=== PATIENT | female | born 1985 | race Caucasian/White ===

== ENCOUNTER → 2017-03-17 | Day surgery (SDC) | payer OTHER ==
[~2017-03-17] VITALS: Ht 154.9 cm; Wt 96.7 kg
[2017-03-17] VITALS (10 sets, daily range): BP systolic 95–144; BP diastolic 58–85; PULSE 59–86; RESP 14–18; O2SAT 93–100
[~2017-03-17] MED LIST: Bupivacaine-MPF 0.5% 30 mL Inj INFILTRATE ONE; Dexamethasone 10 mg/50 mL NS IV ONE; Dexamethasone 4 mg/mL Inj IVPUSH PRN; Dexamethasone 4 mg/mL Inj ONE; EPHEDrine Sulfate 50 mg/mL Inj IVPUSH PRN; Glycopyrrolate 0.2 MG/ML 1mL Inj ONE; HYDROmorphone 1 mg/mL Inj IVPUSH PRN; HYDROmorphone 1 mg/mL Inj ONE; Lactated Ringer's 1,000 ML IV ONE; Lactated Ringer's 1,000 ML IV SCH; Lactated Ringer's 500 ML IV PRN; MetoCLOpramide 5 mg/mL 2 mL Inj IVPUSH PRN; Neostigmine 1 mg/mL 10 mL Inj ONE; Ondansetron 2 mg/mL 2 mL Inj IVPUSH PRN; Ondansetron 2 mg/mL 2 mL Inj ONE; Phenylephrine 10,000 mCg/mL Inj IVPUSH PRN; Propofol 10,000 mCg/mL 20 mL Inj ONE; Rocuronium 10 mg/mL 5 mL Inj ONE; fentaNYL-PF 50 mCg/mL 2 mL Inj IVPUSH PRN; fentaNYL-PF 50 mCg/mL 2 mL Inj ONE
[2017-03-17] MEDS: Lactated Ringer's 1,000 ML IV SCH ×2 (06:46→08:51)
--- NOTE | 2017-03-17 10:35 | PCM.HPANE ---
Patient Data Surgeon Admitting Provider: Attending Provider:Rico Rodriguez MD Primary Care Physician:Funmilayo Vivar Other Provider:Shyam Ramirez Anesthesia Reason for Visit Tonsillitis Ht/WT & BMI Height (Feet): 5 Height (Inches): 1.00 Weight (Kilograms): 96.7 Body Mass Index 40.00 Allergies Coded Allergies: azithromycin (Unverified Allergy, Severe, rash, 02/16/15) ibuprofen (Unverified Allergy, Severe, HIVES, 02/16/15) hydrocodone (Unverified Adverse Reaction, Severe, N7v, 02/16/15) Past Anesthesia History Anesthesia History: Positive for:: Abnormal Airway (tonsillar hypertrophy current admission problem), Denies:: Anesthesia Reactions, Fam Anesthesia Reaction, Malignant Hyperthermia Diabetes History Hx Diabetes?: No MRSA MRSA: No Medications Hypertension Medication: No Home Meds Incl Beta Nancy: No Discontinued Reported Medications Prednisone (PredniSONE)20 Mg [id number] Mg PO DAILY Ref 0 02/16/15 Hydrocodone-Acetaminophen 5-325 mg 1 Each Tablet1 Each PO Q6 PRN For Pain Ref 0 02/16/15 Escitalopram Oxalate 5 Mg/5 Ml [id number] Mg PO DAILY #1 BOTTLE Ref 0 02/16/15 Citalopram 10 Mg [id number] Mg PO DAILY 30 Days Ref 0 02/16/15 Cephalexin 500 Mg [id number] Mg PO BID #40 CAPSULE Ref 0 02/16/15 Buspirone 15 Mg [id number] Mg PO QID 30 Days Ref 0 02/16/15 History History of ENT Problems?: Yes HEENT History: Positive for:: Abnormal Airway (tonsillar hypertrophy current admission problem) Sinus Problem (RHINITIS) Denies:: Cataracts Glaucoma Hearing Problem Denture Type: None Teeth Condition: Within Normal Limits Hx of Heart Problems?: Yes Cardiovascular History: Positive for:: Thrombophlebitis (hx of blood clots, IVC filter placed and removed 2011) Denies:: Abdominal Aortic Aneurism Cardiac Surgery Edema Heart Murmur Hypertension Irregular Heartbeat Hx of Respiratory Problem?: No Respiratory History: Positive for:: Dyspnea ("PROBLEMS BREATHING" R/T PERITONSILLAR ABCESS) Denies:: Asthma COPD Emphysema Pneumonia Tuberculosis Use of C-PAP Machine Use of Inhalers / NEBS Hx Neurologic Problems?: No Neurological History: Denies:: CVA Dizziness Headaches Multiple Sclerosis Parkinson's Disease Seizures Hx of GI Problems?: Yes Hx of Problems?: No Genitourinary History: Denies:: Kidney Stones Urinary Tract Infection Female Hx: Denies:: Currently Problems with Breasts? Skin History: Denies:: History Skin Disorders? Pressure Ulcers Hx Musculoskeletal Problems?: No Musculoskeletal History: Denies:: Back Injury Degenerative Joint Fibromyalgia Musculoskeletal Trauma Myasthenia Gravis Osteoarthritis Systemic Lupus Hx of Psycho/Social Problems?: Yes Psycho Social History: Positive for:: Anxiety Hx Depression Hx Surgeries?: Yes (BTL, IVC filter) Hx Any Other Health Problems?: Yes Other History: Denies:: Cancer Endocrine Disease Hospitalization Thyroid Disease History Blood Transfusions: Positive for:: Accept Blood Products? Denies:: Blood Transfusions Hx Diabetes: No Hx Alcohol Use: YesAlcoholic Drinks Per Day: 2 drinks monthlyHx Substance Use : No Smoking Status: Current Every Day Smoker Have You Smoked inLast 12 mo: Yes (one half pack per day) Stop/Bang S-Snoring: Do You Snore Loudly: No T-Tired: feel tired, fatigued: Yes O-Obsered: Observed not breath: No P-Blood Pressure: treated: No B- Body Mass Index > 35 kg/m2: Yes A- Age over 50: No N- Neck Large Circumference: No G- Gender Male: No VIVIANE Total Score: 2 Risk Assessment Category Category 1A: Patient has history of documented sleep apnea, and HAS NOT received any narcotic, sedative or anesthesia administration during this stay. Category 1B: Patient has history of documented sleep apnea, and HAS received any narcotic , sedative or anesthesia administration during this stay Category 2: Patient has SUSPECTED Obstructive Sleep Apnea, and HAS received any narcotic , sedative or anesthesia administration during this stay. Category 3: Patient has SUSPECTED Obstructive Sleep Apnea and HAS NOT received narcotic, sedative or anesthesia administration during this stay. Category 4: Outpatient in Procedural Areas with known sleep apnea or who screen positive for High Risk via the STOP/BANG questionnaire. Exam Exam Vital Signs Vital Signs Date Time Temp Pulse Resp B/P Pulse Ox O2 Delivery O2 Flow Rate FiO2 03/17/17 10:15 59 14 96/58 93 Room Air 03/17/17 10:05 66 16 106/67 97 Room Air 03/17/17 10:00 70 17 113/61 100 Room Air 03/17/17 09:55 69 17 102/65 100 Simple Mask 9 03/17/17 09:45 36.1 71 18 106/59 100 Simple Mask 9 03/17/17 09:40 78 15 109/61 100 Simple Mask 9 03/17/17 09:37 36.1 77 14 129/68 100 Simple Mask 9 03/17/17 07:11 36.4 86 18 144/85 98 Room Air General Appearance: Alert, Oriented X3 HEENT/AIRWAY: MP 2 Lungs: Normal Air Movement Heart: Exam Unremarkable Meds/Labs/Diagnostics Admission Meds Current Medications Dexamethasone Sodium Phosphate 10 mg/Sodium Chloride 51 ml @ 204 mls/hr PREOP ONCE IV Last administered on 03/17/17 07:35; Start 03/17/17 at 06:00; Stop at 06:14; Status DC Lactated Ringer's (Lr) 1,000 ml @ 0 mls/hr Q0M IV Last administered on 08:51; Start 03/17/17 at 06:00 Bupivacaine HCl (Sensorcaine-MPF 0.5% Inj) 30 ml STK-MED ONCE INFILTRATE Last administered on 03/17/17 08:34; Start 03/17/17 at 08:34; Stop 03/17/17 at 08:36 ; Status DC Acetaminophen (Tylenol IV) 1,000 mg STK-MED ONCE IV Last administered on 09:16; Start 03/17/17 at 09:11; Stop 03/17/17 at 09:13; Status DC Plan Impression Patient chart reviewed, patient interviewed and anesthestic plan with risks, benefits, and alternatives discussed, and informed consent obtained. NPO per Anesth. Guidelines: Yes ASA Physical Status: ASA3 Severe Disease Anesthetic Plan: GA Bene/Risks/Altern/Consents: Yes HP Complete Prior to Induction: Yes Josh Snow MD Mar 17, 2017 10:35
--- NOTE | 2017-03-17 10:37 | PCM.ANEP1 ---
Post Anesthesia PACU Phase 1 Assessment Vital Signs Vital Signs Date Time Temp Pulse Resp B/P Pulse Ox O2 Delivery O2 Flow Rate FiO2 03/17/17 10:15 59 14 96/58 93 Room Air 03/17/17 10:05 66 16 106/67 97 Room Air 03/17/17 10:00 70 17 113/61 100 Room Air 03/17/17 09:55 69 17 102/65 100 Simple Mask 9 03/17/17 09:45 36.1 71 18 106/59 100 Simple Mask 9 03/17/17 09:40 78 15 109/61 100 Simple Mask 9 03/17/17 09:37 36.1 77 14 129/68 100 Simple Mask 9 03/17/17 07:11 36.4 86 18 144/85 98 Room Air Anesthetic Administered: GA Level of Alertness: Awake, talking LUCIO's with Equal Strength: Yes Pain: Yes Nausea or Vomiting: No CV Function & Hydration Stable: Yes Airway Device: None Oxygen Delivery: Simple Mask Lungs: Normal Air Movement PACU Phase 2 Assessment Complications: No Follow up Care: No Patient Instructions Provided: Yes Josh Snow MD Mar 17, 2017 10:37
--- NOTE | 2017-03-17 23:40 | OP ---
[address] [address] OPERATIVE REPORT PATIENT: CHUCK PATTON : 1985 MR#: [id number] ADMIT: 03/17/2017 JOB ID: [id number] DATE OF SURGERY: 03/17/2017 PREOPERATIVE DIAGNOSIS(ES): Chronic tonsillitis. POSTOPERATIVE DIAGNOSIS(ES): Chronic tonsillitis. PROCEDURE PERFORMED: Tonsillectomy. SURGEON: Rico Rodriguez MD MATERIAL TO LABORATORY: None. COMPLICATIONS: None. BLOOD LOSS: 5 cc. ANESTHESIA: General endotracheal anesthesia. INDICATIONS: The patient is a 31-year-old female patient who presented to the [facility] with a chief complaint of chronic sore throats and tonsillar pain, meeting indications for tonsillectomy. Options were discussed with the patient to include observation and medical management versus tonsillectomy, and the patient elected to undergo surgery. INTRAOPERATIVE FINDINGS: Include 1+ cryptic tonsils. DESCRIPTION OF PROCEDURE: The patient was met and identified in the preoperative holding area. Informed consent was verified. Questions were answered. The patient was turned over to Anesthesia and taken to the operating room where general anesthesia was induced. A surgical pause was performed in which correct patient and patient procedure identified. The bed was rotated 90 degrees. The patient was prepped and draped in the standard fashion for surgery. A mouth gag retractor was placed in the mouth to provide retraction in order to visualize the oropharynx. The right tonsil was grasped and retracted medially, and dissected in superior to inferior direction, ensuring adequate hemostasis along the way. The contralateral tonsil was excised in a similar fashion with similar result. The bilateral tonsillar fossa were examined and bleeding control was ensured using suction Bovie electrocautery. The patient was then taken off of retraction for 10 seconds, at which point she was placed back on retraction and the tonsillar fossa were again examined. No bleeding was identified. The patient was turned back over to the Anesthesia Service for awakening. She tolerated the procedure well.
== END | disposition home or self-care (01) ==
LOC: SAS 06:42
PROVIDERS: ATTEND Otolaryngology
DX: J35.01 Chronic tonsillitis (principal); I10 Essential (primary) hypertension; K25.9 Gastric ulcer, unspecified as acute or chronic, without hemorrhage or perforation; F17.210 Nicotine dependence, cigarettes, uncomplicated
CPT/HCPCS: 42826; J0131; J1100; J1170; J1885; J2405; J2704; J2710; J3010; J7120